=== PATIENT | female | born 1935 | race American Indian/Alaskan Native ===

== ENCOUNTER 2019-06-03 10:35 | Outpatient (CLI) | payer MEDICARE ==
[2019-06-03 11:08] LABS: Blood Urea Nitrogen 19 mg/dL (7-17)
--- NOTE | 2019-06-03 14:27 | Cat Scan Report ---
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 TECHNIQUE: Axial CT images were obtained through the abdomen and pelvis before and after after injection of 100 cc Omnipaque 350 IV contrast. 3 plane MIP reconstructions were produced. All CT scans at this [facility] are performed using CT dose reduction for ALARA by means of automated exposure control. COMPARISON: None available. FINDINGS: Aorta: No acute findings. There is minimal atherosclerotic calcification. Caliber is normal. Renal arteries: No acute abnormality. Celiac artery: No acute abnormality. Superior mesenteric artery: No acute abnormality. Inferior mesenteric artery: No acute abnormality. Right iliac arteries: No acute abnormality. Left iliac arteries: No acute abnormality. Additional Findings: IVC, renal veins, and common iliac veins are unremarkable. No acute solid organ abnormality is seen. Incidental small right renal cysts are noted. The gallbladd er is contracted. There is a small hiatal hernia. No free fluid or adenopathy. Colonic diverticulosis is noted. Skeletal Structures: No acute osseous abnormality. IMPRESSION: 1. No acute findings. 2. Incidental findings as above. Signer Name: Joseph Doyle MD Signed: 06/03/2019 2:22 PM Workstation Name: [id number]
== END 2019-06-03 10:36 | disposition home or self-care (01) ==
LOC: CT 10:35
PROVIDERS: ATTEND Surgery Vascular Surgery
DX: K57.30 Diverticulosis of large intestine without perforation or abscess without bleeding (principal); K44.9 Diaphragmatic hernia without obstruction or gangrene; N28.1 Cyst of kidney, acquired; I87.2 Venous insufficiency (chronic) (peripheral); I87.1 Compression of vein; I87.323 Chronic venous hypertension (idiopathic) with inflammation of bilateral lower extremity
CPT/HCPCS: 36415; 74174; 82565; 84520; Q9967